=== PATIENT | male | born 1945 | race Caucasian/White ===

== ENCOUNTER 2018-03-05 14:45 | Observation (INO) | payer MEDICARE ==
[~2018-03-05] VITALS: Ht 188 cm; Wt 103.1 kg
[~2018-03-05 14:45] MED LIST: AMOX1XR PO; BENZ100A PO; CARV6.25 PO; FLUT.05NI; ISOMON60ER PO; LISI20 PO; PRAV20 PO
[2018-03-05 16:56] LABS: Source, Urine Clean Catch
[2018-03-05] MEDS ORDERED: VENL75ER PO (17:05)
[2018-03-05] MEDS ORDERED: NAMZARIC 14 MG1 EACH PO (17:05)
[2018-03-05] MEDS ORDERED: ATEN25 PO (17:06)
[2018-03-05] MEDS ORDERED: VENL37.5ER PO (17:06)
[2018-03-05] MEDS ORDERED: CLON.5 PO (17:06)
[2018-03-05 17:07] LABS: Bilirubin, Urine Neg (Neg); Blood, Urine Neg (Neg); Glucose Qualitative, Urine Neg (Neg); Ketones, Urine Neg (Neg); Leukocyte Esterase, Urine Neg (Neg); Nitrite, Urine Neg (Neg); Protein, Urine 1+ (Neg); Urobilinogen, Urine 2+ (Normal)
[2018-03-05 17:19] LABS: BASOPHILS ABSOLUTE AUTO 0.03 K/mm3 (0.00-0.23); BASOPHILS PERCENT AUTO 1 % (0-2); EOSINOPHILS ABSOLUTE AUTO 0.22 K/mm3 (0.00-0.68); EOSINOPHILS PERCENT AUTO 3 % (0-6); Hematocrit 42.2 % (37.0-53.0); Hemoglobin 13.8 g/dL (13.5-17.5); IMMATURE GRAN ABSOLUTE AUTO 0.01 K/mm3 (0.00-0.10); IMMATURE GRAN PERCENT AUTO 0 % (0-1); LYMPHOCYTES ABSOLUTE AUTO 1.03 K/mm3 (0.84-5.20); LYMPHOCYTES PERCENT AUTO 16 % (21-46); MONOCYTES ABSOLUTE AUTO 0.61 K/mm3 (0.16-1.47); MONOCYTES PERCENT AUTO 9 % (4-13); Mean Corpuscular HGB 30.2 pg (26.0-34.0); Mean Corpuscular HGB Conc 32.7 g/dL (31.5-36.5); Mean Corpuscular Volume 92 fL (80-100); Mean Platelet Volume 8.9 fL (9.1-12.4); NEUTROPHILS ABSOLUTE AUTO 4.76 K/mm3 (1.96-9.15); NEUTROPHILS PERCENT AUTO 71 % (41-73); Platelet Count 193 K/mm3 (150-400); RDW Coefficient Variation 12.3 % (11.7-14.2); Red Blood Cell Count 4.57 M/mm3 (4.30-5.90); White Blood Cell Count 6.66 K/mm3 (4.00-11.30)
[2018-03-05 17:31] LABS: International Normalized Ratio 1.05; Prothrombin Time Results 10.9 Sec (9.7-11.5)
[2018-03-05 17:35] LABS: Alanine Aminotransfer (ALT/SGP 13 U/L (12-78); Albumin, Blood 3.5 g/dL (3.4-5.0); Albumin/Globulin Ratio 0.9 (0.8-1.8); Alk Phos 88 U/L (50-136); Anion Gap 7 mmol/L (6-16); Aspartate Aminotrans (AST/SGOT 16 U/L (12-37); Bilirubin, Total 1.1 mg/dL (0.1-1.0); Blood Urea Nitrogen 15 mg/dL (8-24); Bun/Creatinine Ratio 9.9 (12.0-20.0); CO2, Blood 26 mmol/L (21-32); Calcium, Blood 8.6 mg/dL (8.5-10.1); Chloride, Blood 109 mmol/L (98-108); Creatinine, Blood 1.52 mg/dL (0.60-1.20); Ethanol (Alcohol), Blood, Med <3 mg/dL; Globulin, Blood 3.9 g/dL (2.2-4.0); Glomerular Filtration Rate 48 (60-); Glucose, Blood 101 mg/dL (70-99); Potassium, Blood 4.1 mmol/L (3.5-5.5); Sodium, Blood 142 mmol/L (136-145); Total Protein, Blood 7.4 g/dL (6.4-8.2)
[2018-03-05 17:37] LABS: Appearance, Urine Clear (Clear); Color, Urine Yellow (P-Yellow)
[2018-03-07 05:01] LABS: BASOPHILS ABSOLUTE AUTO 0.02 K/mm3 (0.00-0.23); BASOPHILS PERCENT AUTO 0 % (0-2); EOSINOPHILS ABSOLUTE AUTO 0.22 K/mm3 (0.00-0.68); EOSINOPHILS PERCENT AUTO 4 % (0-6); Hematocrit 39.8 % (37.0-53.0); IMMATURE GRAN ABSOLUTE AUTO 0.02 K/mm3 (0.00-0.10); IMMATURE GRAN PERCENT AUTO 0 % (0-1); LYMPHOCYTES ABSOLUTE AUTO 1.23 K/mm3 (0.84-5.20); LYMPHOCYTES PERCENT AUTO 22 % (21-46); MONOCYTES ABSOLUTE AUTO 0.55 K/mm3 (0.16-1.47); MONOCYTES PERCENT AUTO 10 % (4-13); Mean Corpuscular HGB 30.4 pg (26.0-34.0); Mean Corpuscular HGB Conc 32.7 g/dL (31.5-36.5); Mean Corpuscular Volume 93 fL (80-100); Mean Platelet Volume 9.1 fL (9.1-12.4); NEUTROPHILS ABSOLUTE AUTO 3.49 K/mm3 (1.96-9.15); NEUTROPHILS PERCENT AUTO 63 % (41-73); Platelet Count 182 K/mm3 (150-400); RDW Coefficient Variation 12.3 % (11.7-14.2); RDW Standard Deviation 42.5 fL (35.1-46.3); Red Blood Cell Count 4.27 M/mm3 (4.30-5.90); White Blood Cell Count 5.53 K/mm3 (4.00-11.30)
[2018-03-07 05:21] LABS: Bun/Creatinine Ratio 8.9 (12.0-20.0); Calcium, Blood 8.3 mg/dL (8.5-10.1); Creatinine, Blood 1.58 mg/dL (0.60-1.20)
[2018-03-15] MEDS ORDERED: AMLO5 PO (10:58)
[2018-03-15] MEDS ORDERED: Isosorbide Mono30 MG PO (10:59)
[2018-03-15] MEDS ORDERED: OLAN5A MM (11:00)
== END 2018-03-15 12:50 | disposition home or self-care (01) ==
LOC: ER 14:45 → MEDS 14:46
PROVIDERS: Family Medicine; Physician Assistant
DX: R45.1 Restlessness and agitation (principal); R45.6 Violent behavior; G31.83 Neurocognitive disorder with Lewy bodies; E78.5 Hyperlipidemia, unspecified; I25.10 Atherosclerotic heart disease of native coronary artery without angina pectoris; I12.9 Hypertensive chronic kidney disease with stage 1 through stage 4 chronic kidney disease, or unspecified chronic kidney disease; N18.3 Chronic kidney disease, stage 3 (moderate); F32.9 Major depressive disorder, single episode, unspecified; Z79.01 Long term (current) use of anticoagulants; Z79.899 Other long term (current) drug therapy; Z87.891 Personal history of nicotine dependence
CPT/HCPCS: 36415; 80048; 80053; 85025; 85610; 93005; 93010; 96372; 99285; G0378; G0480; J1650; J3486

== ENCOUNTER → 2018-06-29 | Outpatient (CLI) | payer MEDICARE ==
[~2018-06-29] MED LIST changes: +AMLO5 PO; +ATEN25 PO; +CLON.5 PO; +Isosorbide Mono30 MG PO; +NAMZARIC 14 MG1 EACH PO; +OLAN5A MM; +VENL37.5ER PO; +VENL75ER PO
[2018-06-29 18:16] LABS: Appearance, Urine Clear (Clear); Blood, Urine 1+ (Neg); Color, Urine Yellow (P-Yellow); Glucose Qualitative, Urine Neg (Neg); Ketones, Urine Neg (Neg); Leukocyte Esterase, Urine Neg (Neg); Nitrite, Urine Neg (Neg); Protein, Urine 2+ (Neg); Specific Gravity, Urine 1.025 (1.003-1.022); Urobilinogen, Urine 1+ (Normal)
[2018-06-29 18:37] LABS: Bilirubin, Urine 1+ (Neg)
[2018-06-29 18:38] LABS: Red Blood Cells, Urine 0-2 /hpf (0-2); White Blood Cells, Urine 0-2 /hpf (0-5)
[2018-06-29 18:39] LABS: Bacteria Rare /hpf; Calcium Oxalate Crystals Few /hpf; Squamous Epithelial Cells Rare /hpf (Few)
== END ==
LOC: LAB 16:30 → LAB SHORT 16:30
PROVIDERS: Family Medicine
DX: N39.0 Urinary tract infection, site not specified (principal)
CPT/HCPCS: 81001

== ENCOUNTER → 2018-11-22 | Outpatient (CLI) | payer MEDICARE ==
[2018-11-22 19:35] LABS: Bilirubin, Urine Neg (Neg); Blood, Urine 1+ (Neg); Glucose Qualitative, Urine Neg (Neg); Ketones, Urine Neg (Neg); Leukocyte Esterase, Urine Neg (Neg); Nitrite, Urine Neg (Neg); Protein, Urine 2+ (Neg); Urobilinogen, Urine 1+ (Normal)
[2018-11-22 19:51] LABS: Appearance, Urine Clear (Clear); Color, Urine Yellow (P-Yellow)
[2018-11-22 19:52] LABS: Bacteria Not Seen /hpf; Red Blood Cells, Urine 0-2 /hpf (0-2); Squamous Epithelial Cells Not Seen /hpf (Few); White Blood Cells, Urine 0-2 /hpf (0-5)
== END ==
LOC: LAB 19:26 → LAB SHORT 19:26
PROVIDERS: Family Medicine
DX: N39.0 Urinary tract infection, site not specified (principal)
CPT/HCPCS: 81001

== ENCOUNTER → 2019-02-20 | Outpatient (CLI) | payer MEDICARE ==
[2019-02-20 13:55] LABS: Source, Urine Clean Catch
[2019-02-20 14:12] LABS: Appearance, Urine Clear (Clear); Bilirubin, Urine Neg (Neg); Blood, Urine Neg (Neg); Color, Urine Yellow (P-Yellow); Glucose Qualitative, Urine Neg (Neg); Ketones, Urine Neg (Neg); Leukocyte Esterase, Urine Neg (Neg); Nitrite, Urine Neg (Neg); Protein, Urine 2+ (Neg); Urobilinogen, Urine NORM (Normal)
[2019-02-20 14:27] LABS: Bacteria Not Seen /hpf; Hyaline Casts 0-2 /lpf (0-2); Mucus Light (0-Heavy); Red Blood Cells, Urine Not Seen /hpf (0-2); Squamous Epithelial Cells Few /hpf (Few); White Blood Cells, Urine 0-2 /hpf (0-5)
== END | disposition home or self-care (01) ==
LOC: LAB 13:54 → LAB SHORT 13:54
PROVIDERS: Family Medicine
DX: N39.0 Urinary tract infection, site not specified (principal)
CPT/HCPCS: 81001

== ENCOUNTER → 2019-03-14 | Outpatient (CLI) | payer MEDICARE ==
[2019-03-14 14:11] LABS: Source, Urine Voided
[2019-03-14 14:57] LABS: Appearance, Urine Clear (Clear); Bilirubin, Urine Neg (Neg); Blood, Urine 1+ (Neg); Color, Urine Amber (P-Yellow); Glucose Qualitative, Urine Neg (Neg); Ketones, Urine Neg (Neg); Leukocyte Esterase, Urine Neg (Neg); Nitrite, Urine Neg (Neg); Protein, Urine 3+ (Neg); Specific Gravity, Urine 1.025 (1.003-1.022); Urobilinogen, Urine 2+ (Normal)
[2019-03-14 16:09] LABS: Bacteria Few /hpf; Calcium Oxalate Crystals Mod /hpf; Hyaline Casts 0-2 /lpf (0-2); Squamous Epithelial Cells Few /hpf (Few)
== END | disposition home or self-care (01) ==
LOC: LAB 14:08 → LAB SHORT 14:08
PROVIDERS: Family Medicine
DX: N39.0 Urinary tract infection, site not specified (principal)
CPT/HCPCS: 81001

== ENCOUNTER 2019-09-28 09:05 | Observation (INO) | payer MEDICARE ==
[~2019-09-28] VITALS: Ht 188 cm; Wt 91.8 kg
[~2019-09-28 09:05] MED LIST changes: -AMLO5 PO; -CLON.5 PO; -Isosorbide Mono30 MG PO; -NAMZARIC 14 MG1 EACH PO; -OLAN5A MM; -VENL75ER PO
[2019-09-28] MEDS ORDERED: Ativan1 MG PO ×2 (12:05→12:06)
[2019-09-28] MEDS ORDERED: AMLO5 PO (14:20)
[2019-09-28] MEDS ORDERED: Isosorbide Mono30 MG PO (14:20)
[2019-09-28] MEDS ORDERED: MELATONIN10 M2 PO (14:21)
[2019-09-28] MEDS ORDERED: Aspir 8181 MG PO (14:21)
[2019-09-28] MEDS ORDERED: MIRALAX119 GM PO (14:22)
[2019-09-28] MEDS ORDERED: MEMANTINE HCL E28 MG PO (14:23)
[2019-09-28] MEDS ORDERED: OLAN10A SL (14:24)
[2019-09-28] MEDS ORDERED: Venlafaxine HCl75 MG PO (14:25)
[2019-09-28] MEDS ORDERED: VENL37.5 PO (14:26)
[2019-09-28] MEDS ORDERED: Vitamin D2000 UNIT PO (14:26)
[2019-09-28] MEDS ORDERED: DOCU100 PO (14:27)
[2019-09-28] MEDS ORDERED: ACET500 PO (14:28)
[2019-09-28] MEDS ORDERED: Anusol-HC 2.5%30 GM TOP (14:28)
[2019-09-28] MEDS ORDERED: ACETAMINOPHEN500 M2 PO (14:31)
[2019-09-28] MEDS ORDERED: BISA10S PR (14:32)
[2019-09-28] MEDS ORDERED: CLON.5 PO (14:33)
[2019-09-28] MEDS ORDERED: MILK OF MA400 MG/5 M PO (14:35)
[2019-09-28] MEDS ORDERED: Fleet Bisa10 MG/30 M PR (14:36)
[2019-09-28] MEDS ORDERED: BISM87SU PO (14:36)
[2019-09-28] MEDS ORDERED: Cough Syru100 MG/5 M PO (14:37)
[2019-09-28] MEDS ORDERED: Eq Liquid Anta769 ML PO (14:38)
--- NOTE | 2019-09-28 17:06 | NUR ---
PT ARRIVED TO THE MEDICAL FLOOR FROM THE ER AWAKE ALERT BUT VERY AGITATIVE AND COMBATIVE, FAMILY ACCOMPANIED THE PT, THE PT WAS CLEANED AND CHANGED, THE FAMILY WAS ORIENTED TO THE ROOM LAYOUT AND CALL SYSTEM, A CALL WAS MADE TO DR. CALDWELL CONCERNING THE PTS AGITATION AND ZYPREXA WAS ORDERED AND GIVEN IM, THE PT APPEARS TO BE BREATHING EASILY ON RA, IS IN TO SEE THE PT AT THIS TIME, CALL LIGHT IN REACH, THE PTS DAUGHTER PLANS ON STAYING THE NIGHT WITH THE PT
--- NOTE | 2019-09-28 21:15 | NUR ---
2015: PATIENT AGITATED, SBP HIGH AT 213/95, GAVE BEDTIME MEDS AND WILL MONITOR BP, AGITATION. FAMILY REFUSED MELATONIN FOR THIS PATIENT WELL IV VALIUM. CRUSHED MEDS IN ICECREAM AND WAS ABLE TO ADMINISTER THEM. DAUGHTER CHARLES STAY WITH THE PATIENT TONIGHT. CALL ROBLES WITHIN REACH.
--- NOTE | 2019-09-28 21:30 | NUR ---
SPOKE TO BEATER WORKER HELPER MELVI REGARDING PT AGITATION, DAUGHTER AT BEDSIDE REFUSES IV VALIUM, PREFERS HE NIOT GET CLONAZAPAM, CONCERNED ABOUT CONTRADICATIONS FOR MEDS WITH THIS ILLNESS. PER HER RESEARCH ON GOOGLE. ALSO REQ IV MED RATHER THAN IM MED. RECEIVED ONE TIME DOSE OF ZYPREXA IV 10 MG PER EMAR
--- NOTE | 2019-09-29 11:03 | NUR ---
DURING MORNING MED PASS ,WHICH WAS ADMINISTERED LATER DUE TO PATIENT SLEEPING, THIS NURSE SCANNED ALL MEDS BUT WAS MISSIGN EFFEXOR.THIS NURSE HID SCREEN AND WENT TO GET MED THAT WAS BEING SENT FROM PHARMACY AND WHEN WENT BACK TO ADMINISTER MEDS, THE GIVEN MEDS WERE SHOWN NOT SCANNED EVEN THEY WERE . DAUGHTER WAS PRESENT AND WITNESSED ALL OF THIS.
--- NOTE | 2019-09-29 17:05 | NUR ---
PATIENT HAS SLEPT MOST OF SHIFT ONLY WAKING WHEN HE IS CHANGED. HE BECOMES COMBATIVE QUICKLY AND ZYPREXA IM WAS GIVEN PER EMAR. HIS DAUGHTER HAS BEEN PRESENT THROUGH OUT THE DAY AND SHE IS ABLE TO CALM HIM MOST TIMES. PATIENT DOES NOT TRY TO GET OUT OF BED BUT DOES REQUIRE 3-4 PEOPLE TO ASSIST WITH CHANGES. DAUGHTER FEEDS PATIENT MEALS WHEN AWAKE.
[2019-09-30 05:25] LABS: Bun/Creatinine Ratio 18.8 (12.0-20.0); Creatinine, Blood 1.49 mg/dL (0.60-1.20); Potassium, Blood 4.1 mmol/L (3.5-5.5)
--- NOTE | 2019-09-30 11:18 | NUR ---
1000 PT IS VERY AGITATED AND COMBATIVE WITH STAFF AND FAMILY . PATIENT WILL TRY TO KICK , PUNCH OR BITE WHEN MEDS ARE INTRODUCED TO HIM EVEN BY HIS DAUGHTER. IM ZYPREXA WAS GIVEN AND ALL OTHER MEDS HELD AFTER MULTIPLE ATTEMPTS BY NURSE AND DAUGHTER TO GET HIM TO TAKE THEM ORALLY. THREE STAFF MEMBERS WERE REQUIRED TO HOLD PATIENT SAFE WHILE IM ZYPREXA AND BED BATH GIVEN. PATIENT AT THIS TIME IS REFUSING ANY FOOD DUE TO MENTAL CONDITION AND EXTREME AGITATION.
--- NOTE | 2019-09-30 16:16 | NUR ---
Called by nursing to meet with patients daughter. pt sedate sleeping iwht grimace on face. when turned or repositioned he winces. Daughter reviewed his worsening aggitation, decline in ability to tolerate stimulus and to take medications. She states he is haluicinating and fixated on his guns. she states he has not slept well in a few weeks. Review of history on sleep hysgiene, falls and po intake. She states pt has been falling and his one knee is swollen and painfull. States wandering more at night and spitting out pills and does not want to swallow food. Review with daughter difficulty of patients with severe dementia to express pain or their needs. Educated daughter on non verbal cues of pain. Review with daughter palliative care and symptom managemnt. Daughter had questions about hospice. Review of hospice and the benefits. suggested she discuss with sal and her physicians when to start hospice. review with daughter, possible routes of medications such as topical and rectal if he can no swallow. suggested a hospice consult and meet with a nurse to see if its time. Review of suffering and quality of life and s/s of decline. Gave her our number for a contact for help will update everdaryn director of casework services.
--- NOTE | 2019-09-30 18:01 | NUR ---
PATIENT WAS QUITE AGITATED THIS SHIFT AND EVEN WITH HIS DAUGHTER PRESENT WOULD NOT CALM. MORNING MEDS REFUSED. PALLATIVE CARE CAME AND TALKED WITH FAMILY. MEDS ADJUSTED BY DOCTOR.
--- NOTE | 2019-10-01 06:02 | NUR ---
DAUGHTER REFUSED LAB DRAWS THIS AM, SHE DIDN'T WANT HIM TO GET POKED ANYMORE AND FELT HE DIDN'T REALLY NEED IT.
--- NOTE | 2019-10-01 06:09 | NUR ---
SHIFT SUMMARY PT IS AGITATED WHEN TURNING AND CHANGING HIM. HE DID TAKE HIS PILLS CRUSHED IN ICE CREAM DAUGHTER HELPED TO GIVE THEM TO HIM AND HELPED TO CHANGE HIM. SHE STAYED WITH HIM THROUGH NIGHT. SHE FED HIM 4 ICE CREAMS, 1 SHERBERT CUP, PUDDING, YOGURT AND JELLO. HAS BEEN INCONT OF URINE. AFTER GETTING MEDS HE WAS ABLE TO SLEEP THROUGH THE NIGHT. BED ALARM IN USE.
[2019-10-01] MEDS ORDERED: Fentanyl1 EAC4 TOP (13:24)
[2019-10-01] MEDS ORDERED: MORP20L PO (13:25)
--- NOTE | 2019-10-01 14:19 | NUR ---
DISCHARGE BACK TO [facility] [place]. DR CULVER IN TO SEE PT & DAUGHTER THIS AM. STATE OK TO RETURN TO [facility] TODAY. THEIR RN IN TO EVAL TODAY, OKAY RETURN. [facility]. IV D/C INTACT. PT ASSISTED TO DRESS IN GOWN/PJ BOTTOMS. HE CONTINUES CONFUSED, BECOMES AGITATED W CARE HOWEVER DAUGHTER STATES "100%" BETTER THAN @ ADMIT. GURNEY TRANSPORT ARRANGED FOR 1415. D/C INSTRUCT REVIEWED W DAUGHTER. [facility] SENT W [facility]BULANCE DRIVERS IN PACKET,
== END 2019-10-01 14:28 | disposition hospice, home (50) ==
LOC: ER 09:05 → MEDS 09:06 → ENPENDDIS 10-01 12:36 → MEDS 10-01 14:28
PROVIDERS: ADMIT Internal Medicine Endocrinology, Diabetes & Metabolism
DX: G31.83 Neurocognitive disorder with Lewy bodies (principal); F02.81 Dementia in other diseases classified elsewhere, unspecified severity, with behavioral disturbance; I10 Essential (primary) hypertension; I25.10 Atherosclerotic heart disease of native coronary artery without angina pectoris; G47.33 Obstructive sleep apnea (adult) (pediatric); E86.0 Dehydration; R45.1 Restlessness and agitation; R63.0 Anorexia; Z68.26 Body mass index [BMI] 26.0-26.9, adult; Z95.5 Presence of coronary angioplasty implant and graft; Z87.891 Personal history of nicotine dependence; Z66 Do not resuscitate; Z88.8 Allergy status to other drugs, medicaments and biological substances; Z79.1 Long term (current) use of non-steroidal anti-inflammatories (NSAID); Z79.82 Long term (current) use of aspirin; Z79.899 Other long term (current) drug therapy
CPT/HCPCS: 36415; 80048; 87040; 96360; 96361; 96372; 99285-25; G0378; J1650; J2060; J7030